=== PATIENT | male | born 1940 | race Caucasian/White ===

== ENCOUNTER → 2016-10-16 | Outpatient (CLI) | payer MEDICARE, BC ==
[~2016-10-16] MED LIST: ACCUPRIL10 MG PO; ATORVASTATIN CA20 MG PO; GLUCOPHAGE1000 MG PO; HALFPRIN81 MG PO; HUMALOG100 UNIT/1 SUBCUT; LEVEMIR100 UNIT/1 SUBCUT; SYNTHROID25 MCG PO
== END | disposition short-term general hospital (02) ==
LOC: CLCARD 10-09 18:03
DX: I25.10 Atherosclerotic heart disease of native coronary artery without angina pectoris (principal); E78.5 Hyperlipidemia, unspecified; I10 Essential (primary) hypertension; E11.9 Type 2 diabetes mellitus without complications; E66.9 Obesity, unspecified; Z95.5 Presence of coronary angioplasty implant and graft